=== PATIENT | female | born 1985 | race American Indian/Alaskan Native ===

== ENCOUNTER 2023-12-01 06:43 | Day surgery (SDC) | payer BC, SELFPAY ==
[2023-12-01 07:02] VITALS: BMI 28.0
[2023-12-01 07:27] VITALS: BP 100/71
--- NOTE | 2023-12-01 08:23 | PTCARENOTE ---
GI RN made aware that patient is currently . Also made aware that patient has no primary doctor. Patient stated that she occasionally feels dizzy at home when standing but the dizziness resolves after a couple seconds. Patient states
that she does not feel dizzy currently. Will monitor patient.
[2023-12-01 08:55] VITALS: BP 101/61
[2023-12-01 09:00] VITALS: BP 95/66
[2023-12-01 09:15] VITALS: BP 89/64
[2023-12-01 09:30] VITALS: BP 89/61
== END 2023-12-01 10:00 | disposition home or self-care (01) ==
LOC: SDS 06:43
PROVIDERS: ATTENDING PHYSICIAN Internal Medicine Gastroenterology
DX: Z46.59 Encounter for fitting and adjustment of other gastrointestinal appliance and device (principal)
CPT/HCPCS: 43235